=== PATIENT | male | born 1980 | race Caucasian/White ===

== ENCOUNTER 2017-04-02 09:07 | Emergency (ER) | payer SELFPAY ==
[2017-04-02 09:13] VITALS: RESP 18; O2SAT 100
--- NOTE | 2017-04-02 09:15 | C.PDOC ---
History Of Present Illness 36M c/o constant numbness in his left leg for last 3 days and in left arm since yesterday. no exac or reliev fx. pmh dm on metformin. denies other pmh, drugs, smoking, etoh. Time Seen by Provider: 04/02/17 09:15 Chief Complaint (Nursing): Weakness/Neurological Deficit Past Medical History Vital Signs: Last Vital Signs Temp 97.5 F L 04/02/17 09:13 Pulse 65 04/02/17 09:13 Resp 18 04/02/17 09:13 BP 126/75 04/02/17 09:13 Pulse Ox 100 04/02/17 09:47 Family History: States: Other Other Family History: nc Review Of Systems Except As Marked, All Systems Reviewed And Found Negative. Constitutional: Negative for: Fever, Chills Eyes: Negative for: Vision Change Cardiovascular: Negative for: Chest Pain Respiratory: Negative for: Cough, Shortness of Breath Gastrointestinal: Positive for: Nausea. Negative for: Vomiting, Abdominal Pain Neurological: Positive for: Numbness, Headache ("little"). Negative for: Weakness Physical Exam - Physical Exam Appears: Well, Non-toxic, No Acute Distress Skin: Warm, Dry Head: Atraumatic Eye(s): bilateral: PERRL, EOMI Nose: No Epistaxis Oral Mucosa: Moist Neck: Supple Cardiovascular: Rhythm Regular Respiratory: No Decreased Breath Sounds, No Accessory Muscle Use, No Rales, No Rhonchi, No Stridor, No Wheezing Gastrointestinal/Abdominal: Soft, No Tenderness Extremity: No Swelling Pulses: Left Radial: Normal, Right Radial: Normal, Left Dorsalis Pedis: Normal, Right Dorsalis Pedis: Normal Neurological/Psych: Oriented x3, Normal Cranial Nerves, No Cerebellar Signs, Normal Motor, No Normal Sensation (subjective decreased on the left) ED Course And Treatment - Laboratory Results Result Diagrams: 04/02/17 09:41 04/02/17 09:41 O2 Sat by Pulse Oximetry: 100 NIHSS Stroke Scale - Date/Time Evaluation Performed Date Performed: 04/02/17 Time Performed: 09:19 - How Severe is the Stoke Level of Consciousness: 0=Alert LOC to Questions: 0=Both comments correct LOC to commands: 0=Obeys both correctly Best Gaze: 0=Normal Visual: 0=No visual loss Facial: 0=Normal Motor Arm - Left: 0=No drift Motor Arm - Right: 0=No drift Motor Leg - Left: 0=No drift Motor Leg - Right: 0=No drift Limb Ataxia: 0=Absent Sensory: 1=Mild to moderate loss Best Language: 0=No aphasia Dysarthia: 0=Normal articulation Extinction & Inattention (Neglect): 0=Normal, no object Score: 1 Severity Of Stroke: 1-4= Minor Stroke rTPA Inclusion/Exclusion - Refusal of Treatment Patient Refused Treatment: No - Inclusion Criteria for Altepase Patient is 18 years or Older: Yes The Clinical Diagnosis of Ischemic Stroke That is Causing a Potentially Disabling Neurological Deficit: Yes Time of Onset is Well Established to be Less Than 270 Minute Before Treatment Would Begin: No Risk/Benefit Discussed With Patient/Family Member Present: No Medical Decision Making Medical Decision Making: EKG: Sinus claudia, rate 57, rightward axis. No acute ischemia. 1330 disc w NSGY telecommunications support Dr Pate who rec transfer as he does not have necessary equipment here 1350 disc w NSGY JAK Lai at [facility]- Dr Kearns has accepted transfer. I disc the results and plan w the pt who v/u. MRI brain IMPRESSION: Regular enhancing wall cystic mass lesion at the medial posterior aspect of the right frontal lobe/ right centrum semiovale surrounding with vasogenic edema and contains 2 foci of diffusion restriction. The differential consideration includes brain abscess versus less likely brain tumor or lymphoma in immunocompromised patient. Other consideration includes less likely single metastasis, tuberculoma. Otherwise no evidence of acute pathology or enhancing mass lesion in the brain. Disposition - Disposition Disposition: Trans to Other Acute Care Hosp Disposition Time: 13:50 Condition: STABLE Forms: [employer] (Central African) - Clinical Impression Clinical Impression: Brain lesion
[2017-04-02 09:48] LABS: BASO % 0.4 % (0.0-2.0); EOS # 0.3 K/uL (0.0-0.7); EOS % 4.8 % (0.0-4.0); HEMATOCRIT 45.7 % (35.0-51.0); LYMPH # 2.2 K/uL (1.0-4.3); LYMPH % 35.7 % (20.0-40.0); MEAN CELL VOLUME 87.2 fL (80.0-94.0); MEAN CORPUSCULAR HGB CONC 34.4 g/dL (33.0-37.0); MEAN PLATELET VOLUME 9.3 fL (7.2-11.7); MONO # 0.5 K/uL (0.0-0.8); RED CELL DISTRIBUTION WIDTH 12.4 % (11.5-14.5); WHITE BLOOD COUNT 6.2 K/uL (4.8-10.8)
[2017-04-02 10:00] LABS: INR 0.9
[2017-04-02 10:01] LABS: ALB/GLOB RATIO 1.2 (1.0-2.1); ALKALINE PHOSPHATASE 100 U/L (38-126); ALT/SGPT 53 U/L (21-72); AST/SGOT 24 U/L (17-59); BILIRUBIN,TOTAL 0.8 mg/dL (0.2-1.3); BLOOD UREA NITROGEN 12 mg/dL (9-20); CALCIUM 8.4 mg/dl (8.6-10.4); CARBON DIOXIDE 27 mmol/L (22-30); CHLORIDE 97 mmol/L (98-107); CHOLESTEROL 164 mg/dL (0-199); GFR AFRICAN-AMERICAN > 60; GLUCOSE,RANDOM 248 mg/dL (75-110); POTASSIUM 3.6 mmol/L (3.6-5.2); SODIUM 137 mmol/L (132-148); TOTAL PROTEIN 7.7 g/dL (6.3-8.3)
--- NOTE | 2017-04-02 10:21 | CT ---
PROCEDURE: CT HEAD WITHOUT CONTRAST. HISTORY: left side numbness COMPARISON: None available. TECHNIQUE: Axial computed tomography images were obtained through the head/brain without intravenous contrast. Radiation dose: Total exam DLP = 856.60 mGy-cm. This CT exam was performed using one or more of the following dose reduction techniques: Automated exposure control, adjustment of the mA and/or kV according to patient size, and/or use of iterative reconstruction technique. FINDINGS: HEMORRHAGE: No intracranial hemorrhage. BRAIN: 2.1 x 1.5 x 1.7 cm hypodensity within the right frontal lobe with peripheral hyperdense rim. This lesion demonstrates evidence of associated vasogenic edema. VENTRICLES: No hydrocephalus. CALVARIUM: Unremarkable. PARANASAL SINUSES: Unremarkable as visualized. No significant inflammatory changes. MASTOID AIR CELLS: Right mastoid air cells appear unremarkable. Under aeration of the left mastoid air cells. Minimal fluid in the left mastoid air cells; correlate for history of mastoiditis. OTHER FINDINGS: None. IMPRESSION: Cystic appearing lesion within the right frontal lobe measuring approximately 2.1 x 1.5 x 1.7 cm. Associated vasogenic edema. Recommend MRI without and with IV contrast. Additional incidental findings as above. Findings discussed with Dr. Merino on 04/02/17 at 10:16 a.m.
--- NOTE | 2017-04-02 12:51 | MRI ---
PROCEDURE: MRI BRAIN WITH AND WITHOUT CONTRAST HISTORY: lesion on CT COMPARISON: Comparison is made to the previous noncontrast CT dated 04/02/2017 TECHNIQUE: Multiplanar, multisequence MR images of the brain were obtained with and without intravenous contrast enhancement. FINDINGS: HEMORRHAGE: None DWI: Small foci of diffusion restriction noted at the right frontal cystic lesion described in the previous CT. BRAIN PARENCHYMA: There is a hyperintense T2 and hypo intense T1 cystic mass lesion at the medial aspect of the right frontal lobe at or adjacent to the jones radiata/ centrum semiovale. This cystic mass lesion demonstrate irregular enhancing wall measures 3.4 centimeter in the AP diameter 2.2 centimeter in the transverse diameter and 2.15 centimeter in the longitudinal diameter. The mass is surrounding with moderate vasogenic edema. There are at least 2 foci of diffusion restriction at the anterior and posterior lateral aspect of this cystic mass. There is no evidence of nodular enhancing component in this cystic mass. No evidence of other cystic or enhancing lesion in the brain. No evidence of significant midline shift or significant mass effect on the ventricles. No atrophy or chronic microvascular ischemic changes. ENHANCEMENT: No evidence of other enhancing lesion in the brain or abnormal enhancement in the brain parenchyma. VENTRICLES: Unremarkable. No hydrocephalus. CRANIUM: Unremarkable. ORBITS: Grossly unremarkable. PARANASAL SINUSES/MASTOIDS: Clear VASCULAR SYSTEM: Skull base flow voids intact. OTHER FINDINGS: None . IMPRESSION: Regular enhancing wall cystic mass lesion at the medial posterior aspect of the right frontal lobe/ right centrum semiovale surrounding with vasogenic edema and contains 2 foci of diffusion restriction. The differential consideration includes brain abscess versus less likely brain tumor or lymphoma in immunocompromised patient. Other consideration includes less likely single metastasis, tuberculoma. Otherwise no evidence of acute pathology or enhancing mass lesion in the brain.
[2017-04-02 14:55] VITALS: BP 124/73; PULSE 62; TEMP 98.4
== END 2017-04-02 15:35 | disposition short-term general hospital (02) ==
LOC: C.ER 09:07
DX: G93.9 Disorder of brain, unspecified (principal)
CPT/HCPCS: 70450; 70553; 80053; 80061; 82948; 83036; 84484; 85025; 85610; 85730; 86850; 86900; 96374; 99285; J1100

== ENCOUNTER 2018-08-21 12:55 | Emergency (ER) | payer OTHER ==
[2018-08-21 13:06] VITALS: BMI 25.1
[2018-08-21 13:08] VITALS: BP 112/67; PULSE 78; RESP 18; TEMP 98.4; O2SAT 99
--- NOTE | 2018-08-21 13:40 | C.PDOC ---
History Of Present Illness 38-year-old male come in for evaluation of left-sided back pain/Left flank pain after he sustained trauma to the area earlier today. Patient states he slipped, fell down steps (contrary to triage which states ladder), and fell onto the left side of his back. Patient reports localized pain to the area that is worse with movement. Patient denies head injury, LOC, syncope, neck pain, chest pain, shortness of breath, abdominal pain, N/V, urinary/bowel incontinence, deformity, weakness or sensorY OR vascular deficits to B/L LEs. Ambulatory in ED with stable gait. Time Seen by Provider: 08/21/18 13:32 Chief Complaint (Nursing): Back Pain History Per: Patient, EMS History/Exam Limitations: no limitations Onset/Duration Of Symptoms: Hrs Current Symptoms Are (Timing): Still Present Quality Of Discomfort: "Pain" Previous Symptoms: Back Pain (left-sided ) Associated Symptoms: denies: Incontinence, New Weakness, New Numbness Exacerbating Factor(s): Movement Additional History Per: Patient Past Medical History Reviewed: Historical Data, Nursing Documentation, Vital Signs Vital Signs: Last Vital Signs Temp 98.4 F 08/21/18 13:06 Pulse 78 08/21/18 13:06 Resp 18 08/21/18 13:06 BP 112/67 08/21/18 13:06 Pulse Ox 99 08/21/18 13:06 - Medical History PMH: No Chronic Diseases Surgical History: No Surg Hx Family History: States: Unknown Family Hx - Social History Hx Alcohol Use: No Hx Substance Use: No Review Of Systems Cardiovascular: Negative for: Chest Pain Respiratory: Negative for: Shortness of Breath Gastrointestinal: Negative for: Abdominal Pain Genitourinary: Negative for: Incontinence Musculoskeletal: Positive for: Back Pain (left-sided). Negative for: Neck Pain, Shoulder Pain, Leg Pain Skin: Negative for: Rash, Lesions, Jaundice Neurological: Negative for: Weakness, Numbness, Other (head injury, syncope ) Physical Exam - Physical Exam Appears: Well, Non-toxic, No Acute Distress Skin: Warm, Dry, Rash, Ecchymosis (trace, over left flank ) Head: Normacephalic Eye(s): bilateral: PERRL Ear(s): Bilateral: Normal Nose: No Flaring, No Discharge Oral Mucosa: Moist, No Drooling Lips: Normal Appearing Throat: No Erythema, No Drooling Neck: Trachea Midline, No Midline Cervical Tenderness, No Paracervical Tenderness, No Step Off Deformity, Supple Cardiovascular: Rhythm Regular, No Murmur Respiratory: No Decreased Breath Sounds, No Accessory Muscle Use, No Rales, No Rhonchi, No Stridor, No Wheezing Gastrointestinal/Abdominal: Soft, No Tenderness, No Distention, No Guarding Back: No CVA Tenderness, No Vertebral Tenderness, Paraspinal Tenderness (Left lumbar), Other (left-sided flank tenderness that extends down to left lumbar paraspinal region ) Extremity: Normal ROM, No Tenderness, Capillary Refill (less than 2 seconds ), No Deformity, No Swelling Neurological/Psych: Oriented x3, Normal Speech, Normal Motor, Normal Sensation ED Course And Treatment O2 Sat by Pulse Oximetry: 99 (on RA) Pulse Ox Interpretation: Normal - Other Rad L-spine X-Ray: Interpreted by Me, Viewed By Me Interpretation: IMPRESSION: No acute fractures. 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 Note that the possibility of a chronic pars interarticularis defect at the L4-L5 level not excluded. Minor degenerative spondylosis.. Ribs, Left X-Ray: Interpreted by Me, Viewed By Me Interpretation: IMPRESSION: Unremarkable radiographs of the chest and left ribs. No left rib fracture. . Progress Note: Left Ribs and Chest XR and LS Spine AP/LAT XR ordered. Urinalysis ordered. Tramadol PO given. On re-eval, pt is afebrile, hemodynamicaly stable. Non-toxic. Ambulatory in ED with stable gait. head: AT/NC. neck: Supple, (-) mmidline tenderness. Lungs: CTA B/L, BS equal B/L. CVS: (+)S1S2, reg. ABd: benign. Neurologicaly intact. Imagings review and appears normal, no acute abnormalities. FSBS 241, pt admits, " did not took his medictaion today" and number at his baseline. Pt advised to take medictaion immediately and continue as prescribed. ref. to f/u with PM Din 2-3 days for re-eval. return to Ed if any new changes. Disposition Counseled Patient/Family Regarding: Studies Performed, Diagnosis, Need For Followup, Rx Given - Disposition Referrals: at [facility] [Outside] Disposition: HOME/ ROUTINE Disposition Time: 14:31 Condition: STABLE Additional Instructions: LIGHT DUTY, AVOID PHYSICAL ACTIVITY FOR 1 WEEK TAKE PAIN MEDICATION NEED FOR PAIN FOLLOW UP WITH PMD IN 2-3 DAYS FOR RE-EVALUATION. RETURN TO ED IF ANY WORSENING OR NEW CHANGES. Prescriptions: Ibuprofen [Motrin Tab] 600 mg PO TID #14 tab traMADol [Ultram] 50 mg PO TID #7 tab Instructions: Flank Pain, Contusion (DC), Hyperglycemia, Adult Forms: [employer] (Japanese), Work Excuse - Clinical Impression Clinical Impression: Contusion, flank, Hyperglycemia - PA / AIRCRAFT MAINTENANCE DIRECTOR / Resident Statement MD/DO has reviewed & agrees with the documentation as recorded. - Scribe Statement The provider has reviewed the documentation as recorded by the Scribe (Mindy Nevarez) All medical record entries made by the Scribe were at my direction and personally dictated by me. I have reviewed the chart and agree that the record accurately reflects my personal performance of the history, physical exam, medical decision making, and the department course for this patient. I have also personally directed, reviewed, and agree with the discharge instructions and disposition.
[2018-08-21 14:28] LABS: SQUAMOUS EPITHIAL 1 /hpf (0-5); URINE BILIRUBIN NEGATIVE (NEGATIVE); URINE BLOOD NEGATIVE (NEGATIVE); URINE CLARITY Clear (Clear); URINE COLOR Yellow (YELLOW); URINE GLUCOSE (UA) 3+ mg/dL (Normal); URINE LEUKOCYTE ESTERASE NEG Leu/uL (Negative); URINE PROTEIN NEGATIVE (NEGATIVE); URINE UROBILINOGEN NORMAL mg/dL (0.2-1.0)
--- NOTE | 2018-08-21 14:28 | RAD ---
Date of service: 08/21/2018 PROCEDURE: Radiographs of the Lumbar Spine. HISTORY: injury COMPARISON: No prior. TECHNIQUE: 3 views obtained. FINDINGS: BONES: No acute compression fractures nor retropulsed fragments.. Minor anterior stature loss of the T12, L1 L2 and to a lesser degree L3 segments possibly congenital or developmental.. Note that the possibility of a chronic pars interarticularis defect at the L4-L5 level not excluded. Vertebral bodies exhibit normal alignment. Facets normally aligned. DISC SPACES: Disc space heights relatively maintained. Mild facet overgrowth L5-S1 and to a lesser degree L4-L5 levels. OTHER FINDINGS: None. IMPRESSION: No acute fractures. 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 Note that the possibility of a chronic pars interarticularis defect at the L4-L5 level not excluded. Minor degenerative spondylosis..
--- NOTE | 2018-08-21 14:35 | RAD ---
Date of service: 08/21/2018 PROCEDURE: Radiographs of the Chest and Left Ribs. HISTORY: Injury COMPARISON: None available. TECHNIQUE: Frontal radiograph of the chest and multiple oblique radiographs of the left ribs were obtained. 5 views obtained. FINDINGS: LEFT RIBS: No definitive evidence of acute displaced fracture so far as can be seen however note that the lower left ribs are partially obscured by overlying bowel related artifact. LUNGS: Clear. PLEURA: No pneumothorax or pleural fluid. CARDIOVASCULAR: Normal cardiac size. No pulmonary vascular congestion. No aortic atherosclerotic calcification present OTHER FINDINGS: None. IMPRESSION: Unremarkable radiographs of the chest and left ribs. No left rib fracture.
== END 2018-08-21 15:02 | disposition home or self-care (01) ==
LOC: C.ER 12:55
DX: S30.0XXA Contusion of lower back and pelvis, initial encounter (principal); S30.1XXA Contusion of abdominal wall, initial encounter; W10.9XXA Fall (on) (from) unspecified stairs and steps, initial encounter; R73.9 Hyperglycemia, unspecified